=== PATIENT | female | born 1950 | race Caucasian/White ===

== ENCOUNTER 2016-08-31 16:18 | Emergency (ER) | payer OTHER ==
[~2016-08-31] VITALS: Ht 165.1 cm; Wt 98.3 kg
[~2016-08-31 16:18] MED LIST: ATIVAN1 MG PO; BENICAR HCT 201 EACH PO; BIOTIN PO; LOSARTAN-HCTZ1 EACH PO; WOMEN'S DAILY1 EAC1 PO
[2016-08-31] MEDS ORDERED: VALIUM5 MG PO (18:44)
[2016-08-31 19:22] VITALS: BP 132/68
== END 2016-08-31 19:24 | disposition home or self-care (01) ==
LOC: EME 16:18
DX: M54.5 Low back pain (principal)
CPT/HCPCS: 72100; 99281; 99284; J1885; J3360